=== PATIENT | female | born 1960 | race Caucasian/White ===

== ENCOUNTER 2016-12-24 12:25 | Emergency (ER) | payer MEDICARE, OTHER ==
[~2016-12-24] VITALS: Ht 176.5 cm; Wt 92.4 kg
[2016-12-24 12:37] VITALS: BP 153/86
[2016-12-24 13:43] LABS: BLOOD UREA NITROGEN 7 mg/dL (7-18)
[2016-12-24 13:46] LABS: ASPARTATE AMINO TRANSFERASE 31 U/L (15-37)
[2016-12-24 14:13] LABS: PATH.CAST-FLAG NOT PRESENT; SPERM-FLAG NOT PRESENT; SRC-FLAG NOT PRESENT; XTAL-FLAG NOT PRESENT; YLC-FLAG NOT PRESENT
[2016-12-24] MEDS ORDERED: CIPROFLOXACIN/PMX 400MG/200ML 200 ML ONE (15:45)
[2016-12-24] MEDS ORDERED: CIPROFLOXACIN/PMX 400MG/200ML 200 ML IV ONE (16:00)
[2016-12-26 09:07] LABS: LYME DISEASE IGG/IGM TOTAL AB <0.91 ISR (0.00-0.90); LYME DISEASE IGM <0.80 index (0.00-0.79)
== END 2016-12-24 17:05 | disposition home or self-care (01) ==
LOC: ED 16:40
DX: R19.7 Diarrhea, unspecified (principal); I10 Essential (primary) hypertension; E11.9 Type 2 diabetes mellitus without complications
CPT/HCPCS: 36415; 74020; 80053; 81001; 83690; 85025; 86618; 87046; 87077; 87086; 87186; 87324; 87328; 87329; 87899; 89055; 96365; 99285; J0744

== ENCOUNTER → 2017-01-02 | Outpatient (CLI) | payer MEDICARE, OTHER ==
[~2017-01-02] MED LIST: SINCALIDE (KINEVAC) 5 MCG ONE
== END | disposition home or self-care (01) ==
LOC: PETCFH 09:51
PROVIDERS: ATTEND Nurse Practitioner
DX: K82.8 Other specified diseases of gallbladder (principal); G89.29 Other chronic pain
CPT/HCPCS: 78227; A9537; J2805

== ENCOUNTER → 2017-11-18 | Outpatient (CLI) | payer MEDICARE, OTHER | END | disposition home or self-care (01) | LOC: CFH 15:09 | PROVIDERS: ATTEND Nurse Practitioner | DX: M48.02 Spinal stenosis, cervical region (principal); M50.323 Other cervical disc degeneration at C6-C7 level; G89.29 Other chronic pain | CPT/HCPCS: 72141 ==

== ENCOUNTER → 2017-12-30 | Outpatient (CLI) | payer MEDICARE, OTHER | END | disposition home or self-care (01) | LOC: CFH 14:14 | PROVIDERS: ATTEND Nurse Practitioner | DX: M19.011 Primary osteoarthritis, right shoulder (principal) ==

== ENCOUNTER → 2020-04-30 | Outpatient (CLI) | payer MEDICARE, OTHER ==
[~2020-04-30] MED LIST changes: +OMNIPAQUE 350 MG/ML, 100ML BOTTLE ONE; -SINCALIDE (KINEVAC) 5 MCG ONE
== END | disposition home or self-care (01) ==
LOC: CFH 12:42
PROVIDERS: ATTEND Nurse Practitioner
DX: R91.1 Solitary pulmonary nodule (principal); I82.890 Acute embolism and thrombosis of other specified veins; R10.2 Pelvic and perineal pain; R30.0 Dysuria
CPT/HCPCS: 71260; 74177; 82565; Q9967